=== PATIENT | male | born 1990 | race African-American/Black ===

== ENCOUNTER 2019-06-17 17:44 | Emergency (ER) | payer OTHER ==
[~2019-06-17 17:44] MED LIST: AMOXICILLIN500 MG OR; NAPROSYN500 MG PO; NO HOME MEDS; NO MEDS; PENICILLN VK500 MG OR; TYLENOL & COD12.5 ML OR; ULTRAM50 M1 PO
[2019-06-17 19:25] VITALS: BP 134/70
== END 2019-06-17 19:25 | disposition home or self-care (01) | DRG 605 ==
LOC: ED 17:44
DX: S80.211A Abrasion, right knee, initial encounter (principal); V49.50XA Passenger injured in collision with unspecified motor vehicles in traffic accident, initial encounter

== ENCOUNTER 2024-08-02 21:23 | Emergency (ER) | payer OTHER ==
[~2024-08-02] VITALS: Ht 185.4 cm; Wt 80.0 kg
[2024-08-02 21:48] VITALS: BP 139/83
[2024-08-02 22:00] VITALS: BP 140/95
[2024-08-02 22:15] VITALS: BP 120/76
[2024-08-02 22:30] VITALS: BP 115/83
[2024-08-02 22:45] VITALS: BP 117/69
[2024-08-02] MEDS ORDERED: NAPROXEN500 MG PO (23:36)
[2024-08-02] MEDS ORDERED: DECADRON4 MG PO (23:36)
[2024-08-02 23:48] VITALS: BP 117/69
== END 2024-08-02 23:48 | disposition home or self-care (01) | DRG 552 ==
LOC: ED 21:23
DX: S13.9XXA Sprain of joints and ligaments of unspecified parts of neck, initial encounter (principal); V49.50XA Passenger injured in collision with unspecified motor vehicles in traffic accident, initial encounter